=== PATIENT | male | born 1975 | race African-American/Black ===

== ENCOUNTER 2020-04-14 13:53 | Emergency (ER) | payer OTHER ==
[~2020-04-14] VITALS: Ht 182.9 cm; Wt 81.0 kg
[2020-04-14 14:00] VITALS: BP 135/62
[2020-04-14] MEDS ORDERED: LIDOCAINE WITH 8.4% SOD BICARB 3 ML DISP.SYRIN. INJ ONE (14:30)
[2020-04-14] MEDS ORDERED: DIPH,PERTUSS(ACELL),TET VAC/PF 0.5 ML SYRINGE. VAX IM ONE (14:30)
--- NOTE | 2020-04-14 16:03 | PHYS DOC ---
Past Medical History Past Medical History: No Pertinent History Past Surgical History: No Surgical History Smoking Status: Never Smoker Alcohol Use: Heavy General Adult EDM: Chief Complaint: LACERATION/AVULSION HPI: HPI: Patient is a 44 year old male who presents with left forearm laceration. Patient reports tripping on dumbbells and falling on a window. Patient denies any loss of consciousness. Review of Systems: Review of Systems: Constitutional: Denies fever or chills. [] Musculoskeletal: Denies back pain or joint pain. [] Integument: Reports left forearm laceration Neurologic: Denies headache, focal weakness or sensory changes. [] Psychiatric: Denies depression or anxiety. [] Heart Score: Risk Factors: Risk Factors: DM, Current or recent (<one month) smoker, HTN, HLP, family his tory of CAD, obesity. Risk Scores: Score 0 - 3: 2.5% MACE over next 6 weeks - Discharge Home Score 4 - 6: 20.3% MACE over next 6 weeks - Admit for Clinical Observation Score 7 - 10: 72.7% MACE over next 6 weeks - Early Invasive Strategies Current Medications: Current Medications Medications (Trade) Dose Ordered Sig/Lolly Start Time Stop Time Status Last Admin Dose Admin Diphtheria/ Tetanus/Acell Pertussis (ADACEL TDap SYRINGE) 0.5 ml ONCE ONCE 04/14/20 14:30 04/14/20 14:31 DC 04/14/20 14:38 0.5 ML Lidocaine HCl (Buffered Lidocaine 1%) 6 ml 1X ONCE 04/14/20 14:30 04/14/20 14:31 DC 04/14/20 14:36 6 ML Allergies: Allergies: Allergies Coded Allergies Type Severity Reaction Last Updated Verified No Known Drug Allergies 04/14/20 No Physical Exam: PE: Constitutional: Well developed, well nourished, no acute distress, non-toxic appearance. [] Skin: Left dorsal forearm proximal aspect with two lacerations one approx. 1 cm the other one approx. 8 cm. There is no tendon involvement. Full range of motion to the left upper extremity. Adequate radial, medial, ulnar sensation to the left hand. +2 left radial pulse. Cap refill less than 2 seconds to left fingers. Back: No tenderness, no CVA tenderness. [] Extremities: No tenderness, no cyanosis, no clubbing, ROM intact, no edema. [] Neurologic: Alert and oriented X 3, normal motor function, normal sensory function, no focal deficits noted. [] Psychologic: Affect normal, judgement normal, mood normal. [] Current Patient Data: Vital Signs: Vital Signs Date Time Temp Pulse Resp B/P (MAP) Pulse Ox O2 Delivery O2 Flow Rate FiO2 04/14/20 14:00 98.2 85 18 135/62 (86) 99 Room Air 98.2 EKG: EKG: [] Radiology/Procedures: Radiology/Procedures: [] Impression: Laceration/Wound Repair Wound Location: Left forearm Wound's Depth, Shape: 1 cm laceration is horizontal oriented, 8 cm laceration is shapeless Wound Explored: clean Irrigated w/ Saline (ccs): 250 Betadine Prep?: Y Anesthesia: 1% of buffered lidocaine Volume Anesthetic (ccs): Approximately 6 cc for both lacerations Wound Repaired With: 1 cm laceration was repaired with 2 dissolvable sutures using four-point 0 Vicryl. 8 cm laceration was repaired with 3 interrupted sutures internally and approximately 15 interrupted sutures externally. Both wounds were covered with nonstick dressing. Course & Med Decision Making: Course & Med Decision Making Pertinent Labs and Imaging studies reviewed. (See chart for details) This is a 44-year-old male patient presenting to the ED today with left forearm laceration that was closed by me as noted in procedures. Wound care instructions or return precautions provided to patient. Tetanus updated. Sindi Disclaimer: Sindi Disclaimer: This electronic medical record was generated, in whole or in part, using a voice recognition dictation system. Departure Departure Impression: Primary Impression: Laceration of forearm, left Qualified Codes: S51.812A - Laceration without foreign body of left forearm, initial encounter Disposition: 02 TRANSFER [facility] Condition: STABLE Referrals: NO PCP (PCP) follow up with your doctor in 1 -2 weeks as needed Patient Instructions: Laceration Care, Adult Additional Instructions: You have a laceration to the left forearm that was closed with stitches that are dissolvable. Keep the area clean and dry. Apply Neosporin to the area twice a day. You can remove the dressing in 24 hours if it is not bleeding. Monitor the area for any signs of infection including but not limited to increased redness, warmth, yellow drainage from the area and return to the ED if they occur. 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
== END 2020-04-14 16:14 | disposition short-term general hospital (02) ==
LOC: ER 13:53
DX: S51.812A Laceration without foreign body of left forearm, initial encounter (principal); F10.10 Alcohol abuse, uncomplicated; W01.0XXA Fall on same level from slipping, tripping and stumbling without subsequent striking against object, initial encounter; Y93.89 Activity, other specified; Y92.89 Other specified places as the place of occurrence of the external cause; Y99.8 Other external cause status
CPT/HCPCS: 12004; 90471; 90715; 99285; J3490